=== PATIENT | male | born 1985 | race African-American/Black ===

== ENCOUNTER 2018-01-15 03:12 | Emergency (ER) | payer SELFPAY ==
[~2018-01-15] VITALS: Ht 177.8 cm; Wt 77.1 kg
[2018-01-15 06:54] VITALS: BP 143/83
[2018-01-15] MEDS ORDERED: SODIUM CHLORIDE 0.9% 1,000 ML IV ONE (07:15)
[2018-01-15 07:57] LABS: Alcohol, Urine < 3.0 mg/dL (0-5); Barbiturate Scree,Urine NEGATIVE (NEGATIVE); Benzodiazephine Screen, Urine NEGATIVE (NEGATIVE); Cannabinoid Screen, Urine NEGATIVE (NEGATIVE); Cocaine Screen, Urine NEGATIVE (NEGATIVE); Opiate Scree,Urine POSITIVE (NEGATIVE); Phencyclidine Screen, Urine NEGATIVE (NEGATIVE)
[2018-01-15 08:08] LABS: Amphetamine Screen, Urine POSITIVE (NEGATIVE)
== END 2018-01-15 08:08 | disposition home or self-care (01) ==
LOC: ER 03:16
DX: S09.90XA Unspecified injury of head, initial encounter (principal); M54.2 Cervicalgia; X58.XXXA Exposure to other specified factors, initial encounter; Y93.89 Activity, other specified; Y99.8 Other external cause status; Y92.89 Other specified places as the place of occurrence of the external cause
CPT/HCPCS: 70450; 72125; 80307

== ENCOUNTER 2018-09-20 06:10 | Emergency (ER) | payer SELFPAY ==
[~2018-09-20] VITALS: Ht 185.4 cm; Wt 83.9 kg
[2018-09-20 06:22] VITALS: BP 153/103
[2018-09-20] MEDS ORDERED: SODIUM CHLORIDE 0.9% 1,000 ML IVB ONE (07:08)
[2018-09-20 07:20] LABS: Basophils # (auto) 0.1 uL; Basophils % (auto) 0.6 % (0.0-2.0); Eosinophils # (auto) 0.5 uL; Eosinophils % (auto) 4.2 % (0.0-7.0); Hematocrit 39.9 % (41.0-53.0); Hemoglobin 13.7 g/dL (13.5-17.5); Lymphocytes # (auto) 1.5 uL; Lymphocytes % (auto) 13.7 % (10.0-50.0); Mean Corpuscular Hemoglobin 32.1 pg (28.0-32.0); Mean Corpuscular Hgb Conc. 34.3 g/dL (32.0-36.0); Mean Corpuscular Volume 93.4 fL (80.0-100.0); Monocytes # (auto) 0.9 uL; Monocytes % (auto) 7.9 % (0.0-12.0); Neutrophils # (auto) 8.2 uL; Neutrophils % (auto) 73.6 % (37.0-80.0); Platelet Count (auto) 300 10^3/uL (140-450); Red Blood Cells 4.27 10^6/uL (4.5-5.90); Red Cell Distribution Width 12.7 % (11.8-14.3); White Blood Cell 11.1 10^3/uL (4.4-10.8)
[2018-09-20 07:30] LABS: Chloride 106 mmol/L (98-107); Potassium 3.2 mmol/L (3.5-5.1); Sodium 141 mmol/L (136-145)
[2018-09-20 07:35] LABS: Alanine Aminotransferase 42 U/L (16-61); Albumin 3.3 g/dL (3.4-5.0); Anion Gap 7 (5-15); Aspartate Aminotransferase 34 U/L (15-37); BUN/Creatinine Ratio 16.9; Blood Alcohol < 3.0 mg/dL (0-5); Blood Urea Nitrogen 12 mg/dL (7-18); Calcium 8.2 mg/dL (8.5-10.1); Carbon Dioxide 28 mmol/L (21-32); GFR African American 168 mL/min; GFR Non-African American 138 mL/min; Glucose 142 mg/dL (74-106)
[2018-09-20 07:43] LABS: Alkaline Phosphatase 79 U/L (45-117); Bilirubin, Total 0.3 mg/dL (0.2-1.0); Total Protein 7.2 g/dL (6.4-8.2)
== END 2018-09-20 07:32 | disposition left against medical advice (07) ==
LOC: EDBD 06:10 → ER 06:20
DX: T40.1X1A Poisoning by heroin, accidental (unintentional), initial encounter (principal); R41.82 Altered mental status, unspecified; E87.6 Hypokalemia; E46 Unspecified protein-calorie malnutrition; J45.909 Unspecified asthma, uncomplicated; F12.10 Cannabis abuse, uncomplicated; Z53.29 Procedure and treatment not carried out because of patient's decision for other reasons; Y92.89 Other specified places as the place of occurrence of the external cause
CPT/HCPCS: 36415; 71045; 80053; 80320; 83735; 85025; 93005; 94761